=== PATIENT | male | born 1965 | race Caucasian/White ===

== ENCOUNTER 2021-12-02 22:10 | Emergency (ER) | payer SELFPAY ==
[~2021-12-02] VITALS: Ht 177.8 cm; Wt 68.0 kg
[2021-12-02 22:15] VITALS: BP 152/93
[2021-12-02] MEDS ORDERED: HYDROCODONE/APAP 10/325MG TABLET ONE (22:57)
[2021-12-02] MEDS ORDERED: HYDROCODONE/APAP 10/325MG TABLET PO ONE (23:00)
== END 2021-12-02 23:01 | disposition home or self-care (01) ==
LOC: ER 22:13
DX: F11.10 Opioid abuse, uncomplicated (principal)